=== PATIENT | female | born 2000 | race African-American/Black ===

== ENCOUNTER 2022-06-07 01:37 | Emergency (ER) | payer SELFPAY ==
[~2022-06-07] VITALS: Ht 170.2 cm; Wt 63.5 kg
[2022-06-07] MEDS ORDERED: ACETAMINOPHEN 325MG TABLET PO ONE (06:00)
[2022-06-07 08:45] VITALS: BP 121/68
== END 2022-06-07 08:40 | disposition home or self-care (01) ==
LOC: ER 01:37
DX: T76.21XA Adult sexual abuse, suspected, initial encounter (principal); Z98.890 Other specified postprocedural states
CPT/HCPCS: 99281

== ENCOUNTER 2024-07-01 03:19 | Emergency (ER) | payer SELFPAY ==
[~2024-07-01] VITALS: Ht 170.2 cm; Wt 64.0 kg
[2024-07-01 03:32] VITALS: TEMP 36.8; O2SAT 100
[2024-07-01] MEDS ORDERED: AMOX1TAB16 MT (04:20)
[2024-07-01 05:01] VITALS: BP 138/92; PULSE 68; RESP 16; O2SAT 100
== END 2024-07-01 05:02 | disposition home or self-care (01) ==
LOC: ER 03:40
DX: L03.011 Cellulitis of right finger (principal); Z79.899 Other long term (current) drug therapy; Z98.890 Other specified postprocedural states
CPT/HCPCS: 10060; 99283

== ENCOUNTER 2024-12-02 04:32 | Emergency (ER) | payer SELFPAY ==
[~2024-12-02] VITALS: Ht 175.3 cm; Wt 69.0 kg
[~2024-12-02 04:32] MED LIST: AMOX1TAB16 MT
[2024-12-02 04:34] VITALS: O2SAT 100
[2024-12-02 06:50] LABS: BASOPHILS % 0.8 % (0.0-2.0); EOSINOPHILS % 1.4 % (0.0-5.0); HEMATOCRIT. 36.0 % (36.0-48.0); HEMOGLOBIN. 12.4 g/dL (12.0-16.0); LYMPHOCYTES % 42.5 % (20.0-50.0); MEAN PLATELET VOLUME 9.0 fl (7.4-10.4); MONOCYTES % 6.5 % (2.0-8.0); NEUTROPHILS % 48.8 % (40.0-76.0); PLATELET 170 x1000/uL (130-400); RED BLOOD CELL COUNT 3.90 mill/uL (4.2-5.4); RED CELL DISTRIBUTION WIDTH 12.4 % (11.6-14.6)
[2024-12-02 07:02] LABS: CREATININE 0.7 mg/dL (0.6-1.0); UREA NITROGEN BLOOD 13 mg/dL (9-23)
[2024-12-02 07:08] LABS: HCG SCREEN POSITIVE
[2024-12-02 07:32] LABS: B-HCG QUANTITATIVE 67243 mIU/mL (<6)
[2024-12-02] MEDS ORDERED: TOPUD PO (08:04)
[2024-12-02 09:42] VITALS: BP 116/68; PULSE 90; RESP 18; TEMP 36.8; O2SAT 100
== END 2024-12-02 09:42 | disposition home or self-care (01) ==
LOC: ER 04:32
DX: O20.0 Threatened abortion (principal); Z3A.12 12 weeks gestation of pregnancy
CPT/HCPCS: 36415; 76801; 80048; 84702; 84703; 85025; 86850; 86900; 99284